=== PATIENT | male | born 1990 | race Caucasian/White ===

== ENCOUNTER 2017-10-14 03:43 | Inpatient (IN) | payer SELFPAY, OTHER, MEDICAID ==
[2017-10-14] MEDS: ONDANSETRON 4 MG INJ IV (04:32)
[2017-10-14] MEDS: SOD CHLORIDE 0.9% 1,000 ML IV ×8 (04:32→22:47)
[2017-10-14] MEDS: HYDROmorphONE 1 MG/ML SYG IV (04:32)
[2017-10-14 04:33] LABS: ADD MAN DIFF? NO
[2017-10-14 04:35] LABS: BASOPHILS % 0.2 % (0.0-2.0); EOSINOPHILS # 0.1 10^3/ul (0.0-0.5); EOSINOPHILS % 0.4 % (0.0-7.0); HEMATOCRIT 47.7 % (42.0-52.0); HEMOGLOBIN 16.4 g/dl (14.0-18.0); LYMPHOCYTES # 2.4 10^3/ul (0.8-2.9); LYMPHOCYTES % 17.6 % (15.0-51.0); MEAN CORPUSCULAR HEMOGLOBIN 30.8 pg (29.0-33.0); MEAN CORPUSCULAR HGB CONC 34.4 g/dl (32.0-37.0); MEAN CORPUSCULAR VOLUME 89.5 fl (82.0-101.0); MEAN PLATELET VOLUME 10.4 fl (7.4-10.4); MONOCYTE # 1.2 10^3/ul (0.3-0.9); MONOCYTES % 8.7 % (0.0-11.0); NEUTROPHIL # 9.8 10^3/ul (1.6-7.5); NEUTROPHILS % 72.8 % (39.0-77.0); PLATELET COUNT 262 10^3/UL (140-415); RED BLOOD COUNT 5.33 10^6/ul (4.70-6.10)
[2017-10-14 04:35] LABS: WHITE BLOOD COUNT 13.4 10^3/ul (4.8-10.8)
[2017-10-14 04:43] LABS: ADD UMIC NO; UR ASCORBIC ACID NEGATIVE (NEGATIVE); UR BILIRUBIN (Dip) NEGATIVE (NEGATIVE); UR BLOOD (Dip) NEGATIVE (NEGATIVE); UR CLARITY CLEAR (CLEAR); UR COLOR STRAW (YELLOW); UR GLUCOSE (Dip) NEGATIVE (NEGATIVE); UR KETONES (Dip) NEGATIVE (NEGATIVE); UR LEUKOCYTE ESTERASE (Dip) NEGATIVE Leu/ul (NEGATIVE); UR NITRITE (Dip) NEGATIVE (NEGATIVE); UR SPECIFIC GRAVITY (Dip) 1.014 (1.003-1.030); UR TOTAL PROTEIN (Dip) NEGATIVE (NEGATIVE); UR UROBILINOGEN (Dip) NEGATIVE (NEGATIVE)
[2017-10-14 04:55] LABS: ALANINE AMINOTRANSFERASE 28 IU/L (13-69); ALBUMIN 5.5 g/dl (3.3-4.9); ALBUMIN/GLOBULIN RATIO 1.57; ALKALINE PHOSPHATASE 69 IU/L (42-121); ANION GAP 17 (8-16); ASPARTATE AMINO TRANSFERASE 32 IU/L (15-46); BILIRUBIN,INDIRECT 2.1 mg/dl (0-1.1); BILIRUBIN,TOTAL 2.1 mg/dl (0.2-1.3); BLOOD UREA NITROGEN 10 mg/dl (7-20); CALCIUM 10.3 mg/dl (8.4-10.2); CARBON DIOXIDE 25 mmol/L (21-31); CHLORIDE 101 mmol/L (97-110); CREATININE 0.88 mg/dl (0.61-1.24); GLUCOSE 107 mg/dl (70-220); POTASSIUM 3.1 mmol/L (3.5-5.1); SODIUM 140 mmol/L (135-144)
[2017-10-14] MEDS: IOHEXOL 300MG/ML 150 ML BTL (05:18)
[2017-10-14] MEDS: SOD CHLORIDE 0.9% 100 ML (05:18)
[2017-10-14] MEDS ORDERED: NACL 0.9% 3 ML SYG IV (06:30)
[2017-10-14] MEDS ORDERED: ACETAMINOPHEN 325 MG TAB PO ×2 (06:30)
[2017-10-14] MEDS ORDERED: BISACODYL (EC) 5 MG TAB PO (06:30)
[2017-10-14] MEDS ORDERED: DOCUSATE SODIUM 100 MG CAP PO (06:30)
[2017-10-14] MEDS ORDERED: ONDANSETRON 4 MG INJ IV ×3 (06:30→19:00)
[2017-10-14] MEDS ORDERED: LIDOCAINE 2% (SDV) 5 ML INJ (07:00)
[2017-10-14] MEDS: PIPER-TAZO 2.25 GM (PMX) 50 ML IVPB (07:39)
[2017-10-14] MEDS: HYDROmorphONE 0.5 MG/0.5 ML SYG IV (16:04)
[2017-10-14] MEDS ORDERED: FENTAnyl 50 MCG/ML VIAL (18:58)
[2017-10-14] MEDS ORDERED: ROPIVACAINE 0.5 % 30 ML VIAL (18:58)
[2017-10-14] MEDS ORDERED: HYDROmorphONE 1 MG/5 ML IV SYRINGE IV ×4 (19:00→20:53)
[2017-10-14] MEDS ORDERED: METOCLOPRAMIDE 10 MG INJ IV (19:00)
[2017-10-14] MEDS ORDERED: ALBUTEROL 0.083% (NEB) 2.5 MG/3 ML AMP HHN (19:00)
[2017-10-14] MEDS ORDERED: DIPHENHYDRAMINE 50 MG INJ IV (19:00)
[2017-10-14] MEDS ORDERED: FENTAnyl 50 MCG/ML VIAL IV ×3 (19:00)
[2017-10-14] MEDS ORDERED: PROPOFOL 20 ML (19:28)
[2017-10-14] MEDS ORDERED: CIPROFLOXACIN 400MG/D5W 200 ML (19:28)
[2017-10-14] MEDS ORDERED: SUGAMMADEX SODIUM 200 MG/2 ML VIAL IV (19:28)
[2017-10-14] MEDS ORDERED: ROCURONIUM 50 MG INJ (19:28)
[2017-10-14] MEDS ORDERED: MIDAZOLAM 1 MG/ML 2 ML INJ (19:28)
[2017-10-14] MEDS ORDERED: SUCCINYLCHOLINE CHLORIDE 100 MG/5 ML SYG IV (19:28)
[2017-10-14] MEDS: MEPERIDINE 25 MG INJ IV (20:19)
[2017-10-14] MEDS ORDERED: HYDROmorphONE 0.5 MG/0.5 ML SYG (20:50)
[2017-10-14] MEDS ORDERED: SOD CHLORIDE 0.9% 1,000 ML IV (22:00)
[2017-10-15] MEDS: HYDROCODONE/APAP (5/325) TAB PO ×3 (00:46→08:44)
[2017-10-15 07:13] LABS: ADD MAN DIFF? NO
[2017-10-15 07:22] LABS: BASOPHILS % 0.1 % (0.0-2.0); HEMATOCRIT 43.1 % (42.0-52.0); HEMOGLOBIN 14.7 g/dl (14.0-18.0); LYMPHOCYTES # 0.9 10^3/ul (0.8-2.9); LYMPHOCYTES % 8.1 % (15.0-51.0); MEAN CORPUSCULAR HEMOGLOBIN 30.9 pg (29.0-33.0); MEAN CORPUSCULAR HGB CONC 34.1 g/dl (32.0-37.0); MEAN CORPUSCULAR VOLUME 90.5 fl (82.0-101.0); NEUTROPHILS % 82.4 % (39.0-77.0); PLATELET COUNT 212 10^3/UL (140-415); RED BLOOD COUNT 4.76 10^6/ul (4.70-6.10)
[2017-10-15 07:35] LABS: CHOLESTEROL 140 mg/dl (100-200)
[2017-10-15 07:35] LABS: HDL CHOLESTEROL 46 mg/dl (30-63); LDL CHOLESTEROL,CALCULATED 82 mg/dl; TRIGLYCERIDES 61 mg/dl (0-149)
[2017-10-15 07:39] LABS: ALANINE AMINOTRANSFERASE 20 IU/L (13-69); ALBUMIN 4.2 g/dl (3.3-4.9); ALBUMIN/GLOBULIN RATIO 1.35; ALKALINE PHOSPHATASE 57 IU/L (42-121); ANION GAP 17 (8-16); ASPARTATE AMINO TRANSFERASE 22 IU/L (15-46); BILIRUBIN,INDIRECT 2.8 mg/dl (0-1.1); BILIRUBIN,TOTAL 2.8 mg/dl (0.2-1.3); BLOOD UREA NITROGEN 7 mg/dl (7-20); CALCIUM 9.1 mg/dl (8.4-10.2); CARBON DIOXIDE 23 mmol/L (21-31); CHLORIDE 103 mmol/L (97-110); CREATININE 0.87 mg/dl (0.61-1.24); GLUCOSE 107 mg/dl (70-220); POTASSIUM 4.1 mmol/L (3.5-5.1); SODIUM 139 mmol/L (135-144); TOTAL PROTEIN 7.3 g/dl (6.1-8.1)
[2017-10-15] MEDS: SOD CHLORIDE 0.9% 1,000 ML IV (12:27)
== END 2017-10-15 15:05 | disposition home or self-care (01) | DRG 343 ==
LOC: E/R 03:43 → 2NE 06:03
PROC: 0DTJ4ZZ Resection of Appendix, Percutaneous Endoscopic Approach (ICD-10-PCS; principal; 2017-10-14 17:00)
DX: K35.80 Unspecified acute appendicitis (principal); E80.6 Other disorders of bilirubin metabolism; K76.0 Fatty (change of) liver, not elsewhere classified
CPT/HCPCS: 36415; 74177; 76705; 80053; 80061; 81003; 85025; 88304; 96361; 96374; 96375; 99285-25